=== PATIENT | female | born 1930 | race Caucasian/White ===

== ENCOUNTER → 2017-06-27 | Outpatient (CLI) | payer BC ==
[2015-12-25 11:41] VITALS: BP 109/64
[~2017-06-27] MED LIST: ALBUTEROL2.5 MG/3 M IH; ATROVENT I0.2 MG/1 M IH; CALCIUM 600 + V1 TA1 PO; DIFLUCAN PO; ED ZITHROM6 TAB/BOTT PO; EYE DROPS REDNE15 ML OP; I-VITE LUTEIN1 TAB PO; LEVAQUIN 5500 MG/TA1 PO; PERFOROMIS20 MCG/2 M IH; PREDNISONE10 MG PO; PREDNISONE20 M1 PO; PULMICORT0.5 MG/2 M IH; SYNTHROID0.075 MG/T PO; TART CHERRY; XOPENEX 1.1.25 MG/3 IH
== END ==
LOC: RAD 15:57
DX: R22.42 Localized swelling, mass and lump, left lower limb (principal)

== ENCOUNTER → 2018-03-04 | Outpatient (CLI) | payer BC ==
[2015-12-25 11:41] VITALS: BP 109/64
== END ==
LOC: LAB 17:14
DX: J44.1 Chronic obstructive pulmonary disease with (acute) exacerbation (principal)

== ENCOUNTER → 2018-07-09 | Outpatient (CLI) | payer BC ==
[2015-12-25 11:41] VITALS: BP 109/64
== END ==
LOC: LAB 16:51
DX: I48.91 Unspecified atrial fibrillation (principal)

== ENCOUNTER → 2018-07-10 | Outpatient (CLI) | payer BC ==
[2015-12-25 11:41] VITALS: BP 109/64
== END ==
LOC: LAB 11:07
DX: I48.91 Unspecified atrial fibrillation (principal)

== ENCOUNTER → 2018-07-11 | Outpatient (CLI) | payer BC ==
[2015-12-25 11:41] VITALS: BP 109/64
== END ==
LOC: LAB 08:50
DX: I48.91 Unspecified atrial fibrillation (principal)

== ENCOUNTER → 2018-10-09 | Outpatient (CLI) | payer BC ==
[2015-12-25 11:41] VITALS: BP 109/64
[~2018-10-09] MED LIST changes: +ALBUTEROL S5 MG/1 ML IH; +ALPRAZOLAM0.25 MG PO; +BIOFREEZE COLD118 ML TP; +CENTURY ADULTS1 EACH PO; +GOOD NEIGH1200 MG/15 PO; +HYDROCORTISONE30 G1 TP; +LEVOTHYROXINE0.05 MG PO; +LUTEIN6 M1 PO; +MACULAR HEALTH1 EACH PO; +MELATIN 3 MG-11 TAB PO; +PROAIR HFA0.09 MG/AC IH; +QUALITY CHOICE600 M1 PO; +TYLENOL325 M1 PO; +XOPENEX 0.0.625 MG/3 IH
== END ==
LOC: LAB 10:19
DX: J44.9 Chronic obstructive pulmonary disease, unspecified (principal); J98.4 Other disorders of lung

== ENCOUNTER 2018-10-10 22:33 | Emergency (ER) | payer MEDICARE ==
[~2018-10-10 22:33] MED LIST changes: -ALBUTEROL S5 MG/1 ML IH; -ALPRAZOLAM0.25 MG PO; -BIOFREEZE COLD118 ML TP; -CENTURY ADULTS1 EACH PO; -GOOD NEIGH1200 MG/15 PO; -HYDROCORTISONE30 G1 TP; -LEVOTHYROXINE0.05 MG PO; -LUTEIN6 M1 PO; -MACULAR HEALTH1 EACH PO; -MELATIN 3 MG-11 TAB PO; -PROAIR HFA0.09 MG/AC IH; -QUALITY CHOICE600 M1 PO; -TYLENOL325 M1 PO; -XOPENEX 0.0.625 MG/3 IH
[2018-10-10] MEDS ORDERED: QUALITY CHOICE600 M1 PO (22:57)
[2018-10-10] MEDS ORDERED: XOPENEX 0.0.625 MG/3 IH (22:58)
[2018-10-10] MEDS ORDERED: LUTEIN6 M1 PO (22:59)
[2018-10-10] MEDS ORDERED: LEVOTHYROXINE0.05 MG PO (22:59)
[2018-10-10] MEDS ORDERED: MACULAR HEALTH1 EACH PO (23:00)
[2018-10-10] MEDS ORDERED: CENTURY ADULTS1 EACH PO (23:01)
[2018-10-10] MEDS ORDERED: PREDNISONE10 MG PO (23:01)
[2018-10-10] MEDS ORDERED: ALBUTEROL S5 MG/1 ML IH (23:03)
[2018-10-10] MEDS ORDERED: PROAIR HFA0.09 MG/AC IH (23:03)
[2018-10-10] MEDS ORDERED: BIOFREEZE COLD118 ML TP (23:04)
[2018-10-10] MEDS ORDERED: ALPRAZOLAM0.25 MG PO (23:04)
[2018-10-10] MEDS ORDERED: HYDROCORTISONE30 G1 TP (23:05)
[2018-10-10] MEDS ORDERED: TYLENOL325 M1 PO (23:06)
[2018-10-10] MEDS ORDERED: MELATIN 3 MG-11 TAB PO (23:06)
[2018-10-10] MEDS ORDERED: GOOD NEIGH1200 MG/15 PO (23:07)
[2018-10-11 01:27] VITALS: BP 137/76
== END 2018-10-11 01:40 | disposition home or self-care (01) ==
LOC: ED 22:33
DX: S81.812A Laceration without foreign body, left lower leg, initial encounter (principal); E07.9 Disorder of thyroid, unspecified; M10.9 Gout, unspecified; F17.210 Nicotine dependence, cigarettes, uncomplicated; Z85.118 Personal history of other malignant neoplasm of bronchus and lung; W01.198A Fall on same level from slipping, tripping and stumbling with subsequent striking against other object, initial encounter

== ENCOUNTER 2018-10-22 12:10 | Emergency (ER) | payer MEDICARE ==
[~2018-10-22 12:10] MED LIST changes: +ALBUTEROL S5 MG/1 ML IH; +ALPRAZOLAM0.25 MG PO; +BIOFREEZE COLD118 ML TP; +CENTURY ADULTS1 EACH PO; +GOOD NEIGH1200 MG/15 PO; +HYDROCORTISONE30 G1 TP; +LEVOTHYROXINE0.05 MG PO; +LUTEIN6 M1 PO; +MACULAR HEALTH1 EACH PO; +MELATIN 3 MG-11 TAB PO; +PROAIR HFA0.09 MG/AC IH; +QUALITY CHOICE600 M1 PO; +TYLENOL325 M1 PO; +XOPENEX 0.0.625 MG/3 IH
[2018-10-22 12:42] VITALS: BP 137/85
== END 2018-10-22 12:42 | disposition home or self-care (01) ==
LOC: ED 12:10
DX: Z48.02 Encounter for removal of sutures (principal)

== ENCOUNTER → 2019-02-12 | Outpatient (CLI) | payer MEDICARE | LOC: RAD 13:40 → MAMMO 13:45 | DX: Z13.820 Encounter for screening for osteoporosis (principal); M85.852 Other specified disorders of bone density and structure, left thigh ==